=== PATIENT | male | born 1945 | race Caucasian/White ===

== ENCOUNTER 2021-07-15 15:46 | Outpatient (CLI) | payer OTHER, SELFPAY ==
--- NOTE | ~2021-07-15 | XR_ITS ---
XR chest 2V DATE: 07/15/2021 16:55 INDICATION: Chest pain for a few years. Work asbestos exposure. TECHNIQUE: PA and lateral views COMPARISON: 10/28/2016 2 view chest FINDINGS: Cardiac megaly. Mild aortic tortuosity. No hilar or mediastinal enlargement. There is chronic mild elevation of the right leaf of the diaphragm. No pulmonary infiltrate or consolidation, pleural effusion or pulmonary vascular congestion or pneumo thorax. Status post cholecystectomy. Degenerative spurring of the thoracic spine. IMPRESSION: Cardiomegaly No active pulmonary disease Reviewed, dictated and finalized at location A.
[2021-07-15 16:42] LABS: Hematocrit 47.4 % (42.0-52.0); Hemoglobin 16.2 g/dL (14.0-18.0); Mean Corpuscular HGB Conc 34.2 g/dl (32-36); Mean Corpuscular Hemoglobin 30.8 pg (26-34); Mean Corpuscular Volume 90.1 fl (80-100); Mean Platelet Volume 11.7 fl (7.4-10.4); Platelet Count Result 226 k/mm3 (150-375); Red Blood Count 5.26 M/mm3 (4.6-6.20); Red Cell Distribution Width 12.8 % (11.5-14.5); White Blood Count 25.2 K/mm3 (4.5-10.0)
[2021-07-15 16:47] LABS: Add Urine Microscopic? YES; Appearance Urine Cloudy (Clear); Bacteria Urine Trace /hpf; Bilirubin Urine Negative (Negative); Blood Urine 1+ (Negative); Color Urine Amber (Yellow); Glucose Urine UA Negative (Negative); Ketones Urine Negative (Negative); Leukocyte Esterase Ur 3+ LEU/UL (NEGATIVE); Mucus Urine Heavy /lpf; Nitrate Urine Negative (Negative); Protein Urine 2+ mg/dL (Negative); Specific Grav Ur 1.026 (1.001-1.035); Squamous Epithelial Cell Urine Few /hpf (Few); WBC Urine >75 /hpf (0-3)
[2021-07-15 16:54] LABS: Alanine Aminotransferase 40 U/L (4-50); Albumin Level 4.6 g/dL (3.5-5.1); Alkaline Phosphatase 71 U/L (38-126); Anion Gap 8 mmol/L (8-16); Aspartate Amino Transferase 36 U/L (17-59); Blood Urea Nitrogen 14 mg/dL (9-20); CRP 6.9 mg/dL (<1.0); Calcium 9.1 mg/dL (8.4-10.2); Carbon Dioxide 27 mmol/L (22-30); Chloride 103 mmol/L (98-107); D Dimer 0.79 ug/mL (<0.48); Estimated Glomerular Filt Rate 54; Glucose 132 mg/dL (65-110); Sodium 138 mmol/L (137-145)
--- NOTE | 2021-07-15 16:58 | ECG_ITS ---
Measurements Intervals [place] Rate: 68 P: 25 UT: 179 QRS: -35 QRSD: 112 T: 3 QT: 390 QTc: 415 Interpretive Statements SINUS RHYTHM LEFT AXIS DEVIATION INCOMPLETE RIGHT BUNDLE BRANCH BLOCK VOLTAGE CRITERIA FOR LVH POOR R WAVE PROGRESSION, ANTERIOR LEADS BORDERLINE T WAVE ABNORMALITY- INFERIOR LEADS BASELINE WANDER- V3 Electronically Signed On 07-15-2021 18:54:00 CDT by Riaz Lopez D.O.
[2021-07-15 17:15] LABS: Hemoglobin A1C 5.8 % (<5.7)
[2021-07-15 17:23] LABS: Thyroid Stimulating Hormone 0.867 uIU/mL (0.465-4.680)
[2021-07-15 17:45] LABS: Erythrocyte Sedimentation Rate 9 mm/hr (0-20)
== END 2021-07-15 15:47 | disposition home or self-care (01) ==
PROVIDERS: PCP Family Medicine Sports Medicine; Visit Provider Family Medicine Sports Medicine
DX: R06.00 Dyspnea, unspecified (principal); R53.83 Other fatigue; I51.7 Cardiomegaly
CPT/HCPCS: 36415; 71046; 80053; 81001; 83036; 84443; 85027; 85380; 85652; 86140; 93005

== ENCOUNTER 2022-09-04 22:10 | Emergency (ER) | payer MEDICARE, SELFPAY ==
[2022-09-04 22:10] VITALS: BP 128/108; PULSE 129
--- NOTE | 2022-09-04 22:23 | ECG_ITS ---
Measurements Intervals [place] Rate: 122 P: [place]: 0 QRS: 106 QRSD: 212 T: 0 QT: 470 QTc: 671 Interpretive Statements SUPRAVENTRICULAR TACHYCARDIA RIGHT AXIS DEVIATION [QRS AXIS > 100] INTRAVENTRICULAR CONDUCTION DELAY [130+ ms QRS DURATION] PROBABLE INFERIOR MYOCARDIAL INFARCTION , PROBABLY OLD Electronically Signed On 09-06-2022 11:21:15 CDT by Kendal Hardin M.D.
--- NOTE | 2022-09-04 23:06 | PC.NURSE ---
access- IO right shoulder/ 18 g right hand ET tube at 2243 7.5, 25 at the lip color change/breath sounds heard Meds Given atropine 2215 Epi- [id number]--[id number] Mag 2mg -2241 [id number] [id number] EPI drip at 5mcg started [address] huddleston Pulse check 2213-PEA 2216-PEA 2220 ST with a pulse code Blue at 2225 pulse check 2227 has pulse code Blue 2228 pulse check 2230 PEA 2232- PEA 2234- PEA 2237 PEA 2238 vtach shocked x1 2240 PEA 2242 pea 2243 VFIB- shocked x1 2245 VFIB shocked x1 2247 PEA 2250 pea 2252 VFIB shocked x1 2253 PEA CODE EFFORTS CEASED AT 2254 (TOD)
--- NOTE | 2022-09-04 23:08 | ED.CPR ---
HPI - CPR General Chief Complaint: Cardiac Arrest/CPR Stated Complaint: cardiac arrest Time Seen by Provider: 09/04/22 23:03 History of Present Illness HPI narrative: HPI limited due to acuity This is a 76-year-old male with past medical history of hypertension, brought in by EMS in cardiac arrest. EMS reports the patient's called after found the patient on the ground unresponsive after approximately 30 seconds to a minute. On arrival the patient did not have a pulse with PEA and was started on CPR. 4 rounds total of ACLS were performed prior to arrival. After the third round, ROSC was briefly achieved though pulse was lost approximately 2 minutes prior to arrival. An I-gel was placed. Related Data Allergies Allergy/AdvReac Type Severity Reaction Status Date / Time No Known Allergies Allergy Mild Unverified 12/29/04 10:44 Review of Systems Review of Systems: Unable to obtain review of systems limited severity of illness PMFSH Past Medical History Medical History (Updated 09/05/22 @ 02:31 by Stevie Whitaker MD) Chronic cholecystitis with calculus Encounter for surgical aftercare following surgery on the digestive system Hyperlipidemia Hypertension Surgical History Surgical History (Updated 09/05/22 @ 02:33 by Stevie Whitaker MD) S/P cholecystectomy Family History Family History (Updated 09/05/22 @ 02:31 by Stevie Whitaker MD) Other Acute myocardial infarction Social History Social History Smoking status: Never smoker Alcohol intake: never Exam Narrative: GENERAL: Well-developed, well-nourished, ACLS ongoing HEAD: Normocephalic, atraumatic. EYES: 4mm equal bilaterally with sluggish response to light ENT: Supraglottic airway in place with pink frothy discharge from the mouth NECK: Supple.No JVD CHEST: Coarse breath sounds bilaterally HEART: No peripheral pulses without chest compressions ABDOMEN: Soft, nontender, distended, normal active bowel sounds. EXTREMITIES: Normal range of motion. No edema. SKIN: Cool, dry, no rash. NEURO: Unresponsive Course Course Emergency Course: Patient arrived at 22:10 with ACLS ongoing. On initial pulse check, a bradycardic pulse with rate in the 40s, atropine was given however pulse was lost with PEA. ACLS was continued with ROSC achieved at 22:20 (appeared to be tachycardia on the monitor). EKG at 22:23 showed supraventricular tachycardia without ST segment elevations concerning for STEMI. Patient however coded once more at 22:25. ROSC again achieved at 22:27, with bradycardia (epinephrine drip was started) followed by repeat cardiac arrest at 2228. ACLS was resumed with PEA x4, followed by Vtach that was defibrillated. The patient then varied among PEA, V. fib (requiring defibrillation 3 additional times) and asystole. The patient received a total of 1 amp of atropine, 10 Amps of epinephrine, 2 mg magnesium, 2 Amps of calcium, 3 Amps of bicarb. Despite significant efforts by medical team, the patient remained in asystole and time of was declared at 22:54. Throughout the above process, I discussed the recurrent loss of pulses with the patient's Mrs. Mott and the patient's poor prognosis. She states the patient's wishes were for full resuscitative efforts. She states the patient had been coughing for the past 3 weeks, had COVID 2 weeks prior to arrival, and was worsening with significant dyspnea over the past 3 days. All questions were answered to the patient's 's satisfaction. Vital Signs Vital signs: Vital Signs Pulse Rate 129 H 09/04/22 22:10 Blood Pressure 128/108 H 09/04/22 22:10 Pulse Rate 129 H 09/04/22 22:10 Blood Pressure 128/108 H 09/04/22 22:10 Procedures Intubation Intubation #1: Intubation Date: 09/04/22 Intubation Time: 22:43 sedative: none paralytic: other (none) Laryngoscope: other (Glidescope Mac 3) Tube Size (cm): 7.5 Method of Int
--- NOTE | 2022-09-04 23:28 | PC.NURSE ---
please see notes for code summary
--- NOTE | 2022-09-04 23:29 | PC.NURSE ---
Assumed care of pt at this time, report from Ronny SWENSON.
--- NOTE | 2022-09-04 23:43 | PC.NURSE ---
Approx 20mL of IV Epinephrine drip administered during code in 18G peripheral access R hand.
== END 2022-09-05 01:03 | disposition expired ==
PROVIDERS: Emergency Provider Preventive Medicine Aerospace Medicine
DX: I46.9 Cardiac arrest, cause unspecified (principal); I10 Essential (primary) hypertension; E78.5 Hyperlipidemia, unspecified; Z86.16 Personal history of COVID-19; I47.1 Supraventricular tachycardia; I45.9 Conduction disorder, unspecified; R94.31 Abnormal electrocardiogram [ECG] [EKG]
CPT/HCPCS: 31500; 92950; 93005; 96374; 99285; C1751; J0171; J0461; J3475